=== PATIENT | female | born 1985 ===

== ENCOUNTER 2016-11-24 20:15 | Emergency (ER) | payer OTHER ==
[~2016-11-24] VITALS: Ht 157.5 cm; Wt 94.2 kg
[2016-11-24 20:23] VITALS: TEMP 36.9; Ht 157.5 cm; Wt 94.2 kg
[2016-11-24] MEDS ORDERED: KETOROLAC TROMETHAMINE 30 MG/ML VIAL IV STA (20:49)
[2016-11-24] MEDS ORDERED: PROCHLORPERAZINE 5 MG/ML 2 ML VIAL IV STA (20:49)
[2016-11-24] MEDS ORDERED: DiphenhydrAMINE HCL 50 MG/ML VIAL IV STA (20:49)
[2016-11-24] MEDS ORDERED: SODIUM CHLORIDE 0.9% 1000ML 1,000 ML IV STA (20:52)
--- NOTE | 2016-11-24 20:56 | EMERGENCY ROOM VISIT NOTE ---
History Report prepared by Charlie: Oseas Lancaster Under the Supervision of: Dr. Sunny Elias M.D. First contact with patient: 20:42 Chief Complaint: HEADACHE Stated Complaint: HEADACHE/VOMITING History of Present Illness The patient is a 31 year old female who presents to the Emergency Room with complaints of a persistent headache for the past 2 months. The headache has gradually worsened the past 4 days. She rates her pain as a 10/10 and describes the pain as feeling like "pressure". She admits to weakness of the left side of her face, nausea, and vomiting. She denies any fevers or neck stiffness. 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 She has been using Ibuprofen, Acetaminophen and 800 mg Oxycodone whenever she has pain for relief and is not allergic to any medications. The patient denies previous ED visits for a headache, but has had previous imaging in [place]. The patient moved from [place] to [place] in August 2016, and her current doctor is Dr. Zepeda. Source of History: patient Onset: 4 days [employer] Position: head Symptom Intensity: 10/10 Quality: pressure Timing: worsening Modifying Factors (Relieving): tylenol (acetaminophen), ibuprofen, narcotics (Oxycodone) Associated Symptoms: + nausea, + vomiting, + weakness (left side of face), No fevers, No neck pain Review of Systems See HPI for pertinent positives & negatives. A total of 10 systems reviewed and were otherwise negative. Past Medical & Surgical Medical Problems: (1) delivery delivered Social History Smoking Status: Never Smoker Alcohol Use: occasionally Drug Use: none Marital Status: Housing Status: lives with family Occupation Status: employed Current/Historical Medications Scheduled Multivit/Min/Iron/Fol Ac/Pren ( Vitamin), 1 TAB PO DAILY Allergies Coded Allergies: No Known Allergies (Unverified , 11/24/16) Physical Exam Vital Signs Date Time Temp Pulse Resp B/P Pulse Ox O2 Delivery O2 Flow Rate FiO2 11/24/16 22:08 88 16 106/73 97 Room Air 11/24/16 20:23 36.9 85 20 111/78 98 Room Air Physical Exam GENERAL: Patient is well appearing and in mild distress. HEAD: No acute trauma, normocephalic atraumatic ENT: Mucous membranes moist, no nasal congestion. EYES: Equal/Reactive Bilaterally, No scleral icterus, Normal ROM NECK: No nuchal rigidity, no meningismus, trachea is midline, full ROM LUNGS: No dyspnea. Clear to auscultation and equal bilaterally. No wheeze, no rhonchi. HEART: Regular rate and rhythm. No murmurs, rubs, gallops appreciated. ABDOMEN: Soft, nontender, bowel sounds positive, no masses appreciated, no peritonitis. BACK: No midline tenderness, no CVA tenderness EXTREMITIES: Normal motion all extremities, no cyanosis, no edema. NEUROLOGIC: Awake, Alert, Oriented, no acute motor or sensory deficits, no focal weakness, cranial nerves grossly intact. SKIN: No rash, no jaundice, no diaphoresis. Medical Decision & Procedures Laboratory Results 11/24/16 20:55 Red Blood Count 4.79, Mean Corpuscular Volume 84.8, Mean Corpuscular Hemoglobin 27.6, Mean Corpuscular Hemoglobin Concent 32.5, Mean Platelet Volume 10.8, Neutrophils (%) (Auto) 56.1, Lymphocytes (%) (Auto) 34.6, Monocytes (%) (Auto) 6.8, Eosinophils (%) (Auto) 2.0, Basophils (%) (Auto) 0.3, Neutrophils # (Auto) 4.87, Lymphocytes # (Auto) 3.01, Monocytes # (Auto) 0.59, Eosinophils # (Auto) 0.17, Basophils # (Auto) 0.03 11/24/16 20:55 Test 11/24/16 20:55 White Blood Count 8.69 K/uL (4.8-10.8) Red Blood Count 4.79 M/uL (4.2-5.4) Hemoglobin 13.2 g/dL (12.0-16.0) Hematocrit 40.6 % (37-47) Mean Corpuscular Volume 84.8 fL (80-100) Mean Corpuscular Hemoglobin 27.6 pg (25-34) Mean Corpuscular Hemoglobin Concent 32.5 g/dl (32-36) Platelet Count 261 K/uL (130-400) Mean Platelet Volume 10.8 fL (7.4-10.4) Neutrophils (%) (Auto) 56.1 % Lymphocytes (%) (Auto) 34.6 % Monocytes (%) (Auto) 6.8 % Eosinophils (%) (Auto) 2.0 % Basophils (%) (Auto) 0.3 % Neutrophils # (Auto) 4.87 K/uL (1.4-6.5) Lymphocytes # (Auto) 3.01 K/uL (1.2-3.4) Monocytes # (Auto) 0.59 K/uL (0.11-0.59) Eosinophils # (Auto) 0.17 K/uL (0-0.5) Basophils # (Auto) 0.03 K/uL (0-0.2) RDW Standard Deviation 41.2 fL (36.4-46.3) RDW Coefficient of Variation 13.3 % (11.5-14.5) Immature Granulocyte % (Auto) 0.2 % Immature Granulocyte # (Auto) 0.02 K/uL (0.00-0.02) Erythrocyte Sedimentation Rate 21 mm/hr (0-21) Anion Gap 6.0 mmol/L (3-11) Est Creatinine Clear Calc Drug Dose 158.5 ml/min Estimated GFR () 143.7 Estimated GFR (Non- 124.0 BUN/Creatinine Ratio 30.7 (10-20) Calcium Level 8.7 mg/dl (8.5-10.1) C-Reactive Protein 0.67 mg/dl (0-0.29) Laboratory results as reviewed by me. Medications Administered Medications (Trade) Dose Ordered Sig/Fatoumata Route Start Time Stop Time Status Last Admin Dose Admin Prochlorperazine Edisylate (Compazine Inj) 10 mg NOW STAT IV 11/24/16 20:49 11/24/16 20:51 DC 11/24/16 21:07 10 MG Diphenhydramine HCl (Benadryl Inj) 50 mg NOW STAT IV 11/24/16 20:49 11/24/16 20:51 DC 11/24/16 21:07 50 MG Ketorolac Tromethamine 30 mg 30 mg NOW STAT IV 11/24/16 20:49 11/24/16 20:51 DC 11/24/16 21:07 30 MG Sodium Chloride (Nss 1000ml) 1,000 ml @ 999 mls/hr Q1H1M STAT IV 11/24/16 20:52 11/24/16 21:52 DC 11/24/16 21:07 999 MLS/HR ED Course 2041: The patient was evaluated in room A12. A complete history and physical exam was performed. 2049: Toradol Injection 30 mg IV, Benadryl Injection 50 mg IV, Compazine Injection 10 mg IV 2051: Sodium Chloride 1000 ml @ 999 mls/hr IV 2129: The patient reports that the fluid through the IV was too cold. She requested the IV to be taken out. 2142: I have reevaluated the patient. Her headache is gone, but she still feels a little dizzy. 2224: I reevaluated the patient. She feels well enough to go home. Discussed results and discharge instructions: She verbalized understanding and agreement. The patient is ready for discharge. Medical Decision Differential: Headache, Migraine, Cluster Headache, Seizure, Meningitis, Sinusitis, CO exposure, ICH/SAH, Infectious, Tumor, Sinus Thrombosis, Arterial Dissection, amongst other pathologies entertained. 31 yr old female arrives for evaluation for bifrontal headache with associated nausea. She has had a headache for many months, already evaluated by neuro and having had MRI/CT which she and report were normal. Over last few days headache has worsened. She has no neuro deficits, does not have meningitis by examination and has no risk factors of dissection. She is stable. Given IV shawn /comp/toradol with improvement other than sleepy. She wishes to go home. Labs do not indicate infectious etiology, electrolytes look good, and exam is benign. She notes already having imaging, already has PCP appointment and is stable. Impression Primary Impression: Headache Additional Impression: Migraine Scribe Attestation The scribe's documentation has been prepared under my direction and personally reviewed by me in its entirety. I confirm that the note above accurately reflects all work, treatment, procedures, and medical decision making performed by me. Departure Information Dispostion Home / Self-Care Patient Instructions ED Headache Migraine, My [facility] Additional Instructions We are always here to help. If you develop worsening headache, weakness in arms or legs, urinary/bowel control loss or other concerns return for further evaluation. Keep your appointment with your doctor as planned. Problem Qualifiers Primary Impression: Headache Headache type: unspecified Headache chronicity pattern: acute headache Intractability: not intractable Qualified Codes: R51 - Headache Additional Impression: Migraine Migraine type: unspecified Status migrainosus presence: without status migrainosus Intractability: not intractable Qualified Codes: G43.909 - Migraine, unspecified, not intractable, without status migrainosus
[2016-11-24 21:07] LABS: BASO % 0.3 %; BASO ABS # 0.03 K/uL (0-0.2); COMPLETE YES; HEMATOCRIT 40.6 % (37-47); IG% 0.2 %; LYMPH % 34.6 %; LYMPH ABS # 3.01 K/uL (1.2-3.4); MEAN CELL VOLUME 84.8 fL (80-100); MEAN CORPUSCULAR HEMOGLOBIN 27.6 pg (25-34); MEAN CORPUSCULAR HGB CONC 32.5 g/dl (32-36); MEAN PLATELET VOLUME 10.8 fL (7.4-10.4); MONO % 6.8 %; NEUT % 56.1 %; PLATELET COUNT 261 K/uL (130-400); RED BLOOD COUNT 4.79 M/uL (4.2-5.4); WHITE BLOOD COUNT 8.69 K/uL (4.8-10.8)
[2016-11-24] MEDS ORDERED: PRENTAB26 PO (21:17)
[2016-11-24 21:26] LABS: BUN/CREATININE RATIO 30.7 (10-20); C-REACTIVE PROTEIN 0.67 mg/dl (0-0.29); CREATININE 0.54 mg/dl (0.60-1.20); POTASSIUM 3.9 mmol/L (3.5-5.1)
[2016-11-24 22:08] VITALS: BP 106/73; PULSE 88; O2SAT 97
[2016-11-24 22:09] LABS: CALCIUM 8.7 mg/dl (8.5-10.1)
== END 2016-11-24 22:19 | disposition home or self-care (01) ==
LOC: C.EDB 20:19 → C.EDA 22:19
DX: G43.909 Migraine, unspecified, not intractable, without status migrainosus (principal); G51.0 Bell's palsy

== ENCOUNTER → 2017-04-01 | Outpatient (CLI) | payer OTHER ==
[~2017-04-01] MED LIST: PRENTAB26 PO
== END | disposition home or self-care (01) ==
LOC: C.PAPS 07:46
PROVIDERS: ATTEND Obstetrics & Gynecology
DX: Z12.4 Encounter for screening for malignant neoplasm of cervix (principal)

== ENCOUNTER → 2017-06-04 | Outpatient (CLI) | payer OTHER ==
[2017-06-04 14:40] LABS: URINE APPEARANCE TURBID (CLEAR); URINE BILIRUBIN NEG (NEG); URINE COLOR DK YELLOW; URINE NITRITE NEG (NEG); URINE SPECIFIC GRAVITY 1.033 (1.000-1.030); UROBILINOGEN NEG (NEG)
[2017-06-04 14:45] LABS: MANUAL MICROSCOPIC REQUIRED? NO; REVIEW REQ? NO
== END | disposition home or self-care (01) ==
LOC: C.LABSPEC 13:30
PROVIDERS: ATTEND Obstetrics & Gynecology
DX: O34.219 Maternal care for unspecified type scar from previous cesarean delivery (principal); Z3A.00 Weeks of gestation of pregnancy not specified

== ENCOUNTER → 2017-06-05 | Outpatient (CLI) | payer OTHER ==
[2017-06-05 12:10] LABS: BASO % 0.2 %; BASO ABS # 0.02 K/uL (0-0.2); COMPLETE YES; HEMATOCRIT 39.2 % (37-47); IG% 0.4 %; LYMPH % 23.3 %; LYMPH ABS # 2.34 K/uL (1.2-3.4); MEAN CELL VOLUME 87.5 fL (80-100); MEAN CORPUSCULAR HEMOGLOBIN 29.2 pg (25-34); MEAN CORPUSCULAR HGB CONC 33.4 g/dl (32-36); MEAN PLATELET VOLUME 11.5 fL (7.4-10.4); MONO % 5.2 %; NEUT % 69.9 %; PLATELET COUNT 289 K/uL (130-400); RED BLOOD COUNT 4.48 M/uL (4.2-5.4); WHITE BLOOD COUNT 10.03 K/uL (4.8-10.8)
[2017-06-09 07:21] LABS: CHLAMYDIA TRACH RNA*** NOT DETECTED (NOT DETECTED); GC (NEIS GONORRHOEAE)RNA** NOT DETECTED (NOT DETECTED)
== END | disposition home or self-care (01) ==
LOC: C.LAB1850 10:53
PROVIDERS: ATTEND Obstetrics & Gynecology
DX: Z34.90 Encounter for supervision of normal pregnancy, unspecified, unspecified trimester (principal); Z20.9 Contact with and (suspected) exposure to unspecified communicable disease

== ENCOUNTER → 2017-07-31 | Outpatient (CLI) | payer OTHER | END | disposition home or self-care (01) | LOC: C.LAB1850 09:42 | PROVIDERS: ATTEND Obstetrics & Gynecology | DX: Z34.82 Encounter for supervision of other normal pregnancy, second trimester (principal) ==

== ENCOUNTER → 2017-10-17 | Outpatient (CLI) | payer OTHER ==
[2017-10-17 15:51] LABS: HEMATOCRIT 37.2 % (37-47)
== END | disposition home or self-care (01) ==
LOC: C.LAB1850 13:59
PROVIDERS: ATTEND Obstetrics & Gynecology
DX: Z34.83 Encounter for supervision of other normal pregnancy, third trimester (principal)

== ENCOUNTER → 2017-11-26 | Outpatient (CLI) | payer OTHER | END | disposition home or self-care (01) | LOC: C.LABSPEC 15:54 | PROVIDERS: ATTEND Obstetrics & Gynecology | DX: Z34.83 Encounter for supervision of other normal pregnancy, third trimester (principal) ==